=== PATIENT | female | born 1955 ===

== ENCOUNTER 2023-10-24 12:34 | Outpatient (CLI) | payer MEDICARE, OTHER, SELFPAY ==
--- NOTE | ~2023-10-24 | CT_ITS ---
CT of the Abdomen and Pelvis: Indication: Ventral hernia Technique: 2.5 mm axial scans were obtained through the abdomen and pelvis following intravenous adm inistration of 100 cc of Omnipaque 350. Dose reduction technique was used on this scan by utilizing a utomated exposure control and iterative reconstruction technique. The dose-length product (DLP) was 9 22.85 mGy-cm. Findings: Scans through the lung bases demonstrate probable chronic atelectatic change or scarring a t the lingula and left lung base. The liver, spleen, pancreas, adrenals and kidneys are within normal limits. Small calcified gallstone present. There are atherosclerotic calcifications of the aorta. No lymphadenopathy. There is a low anterior midline ventral hernia containing focal loop of small bowel. Suggestion of pr ior herniorrhaphy in this region. No bowel obstruction or bowel wall thickening. Images through the pelvis were performed. Urinary bladder unremarkable. No pelvic mass seen. No ascit es. Probable chronic compression deformity is of T11, T12, L1, L3, L4, and L5. Impression: Low anterior midline ventral hernia containing several focal small bowel loops. No bowel obstruction or bowel wall thickening. Suggestion of prior herniorrhaphy in this region. Multiple chronic appearing compression fractures, as above. Cholelithiasis. Reviewed, dictated and finalized at location . Impression: Low anterior midline ventral hernia containing several focal small bowel loops. No bowel obstruction or bowel wall thickening. Suggestion of prior herniorrhap hy in this region. Multiple chronic appearing compression fractures, as above. Cholelithiasis.
[2023-10-24 13:02] LABS: Estimated Glomerular Filt Rate > 60
== END 2023-10-24 12:35 ==
PROVIDERS: Visit Provider Family Medicine Sports Medicine
DX: K43.9 Ventral hernia without obstruction or gangrene (principal); M48.54XA Collapsed vertebra, not elsewhere classified, thoracic region, initial encounter for fracture; K80.20 Calculus of gallbladder without cholecystitis without obstruction
CPT/HCPCS: 74177; Q9967